=== PATIENT | male | born 1970 | race Caucasian/White ===

== ENCOUNTER 2017-10-26 14:53 | Emergency (ER) | payer OTHER ==
[2017-10-26 15:09] VITALS: BP 158/92
[2017-10-26] MEDS ORDERED: HYDROCODONE/APAP 5/325 TAB PO ONE (15:12)
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
[2017-10-26] MEDS ORDERED: IBUPROFEN 600 MG TAB PO ONE (15:39)
== END 2017-10-26 16:36 | disposition home or self-care (01) ==
LOC: CED 14:53
DX: S43.101A Unspecified dislocation of right acromioclavicular joint, initial encounter (principal); V18.0XXA Pedal cycle driver injured in noncollision transport accident in nontraffic accident, initial encounter; Y93.55 Activity, bike riding; Y92.830 Public park as the place of occurrence of the external cause; Y99.8 Other external cause status
CPT/HCPCS: 73030-PO